=== PATIENT | female | born 1970 | race Caucasian/White ===

== ENCOUNTER 2019-01-04 20:14 | Inpatient (IN) ==
[2019-01-04 21:25] LABS: Eosinophils % 0.6 %; Immature Granulocytes % 1.4 % (0-4)
[2019-01-04 21:26] LABS: Basophils # 0.1 K/mcL (0.0-0.2); Basophils % 0.5 %; Eosinophils # 0.1 K/mcL (0.0-0.6); Hematocrit 18.3 % (35.3-44.9); Lymphocytes # 2.5 K/mcL (0.6-4.6); Lymphocytes % 21.5 %; Mean Corpuscular HGB Conc 31.7 g/dL (31.6-35.5); Mean Corpuscular Volume 78.9 fL (83.0-100.0); Mean Platelet Volume 9.7 fL (9.4-12.4); Monocytes # 0.8 K/mcL (0.0-1.3); Platelet Count 352 K/mcL (140-400); Red Blood Count 2.32 M/mcL (3.82-4.97); Red Cell Distribution Width 15.9 % (11.5-14.5); White Blood Count 11.6 K/mcL (4.3-11.1)
[2019-01-04 21:30] LABS: Hemoglobin 5.8 g/dL (11.5-15.4)
--- NOTE | 2019-01-04 21:38 | Emergency Department Note ---
Disposition Clinical Impression: Acute post-hemorrhagic anemia, Vaginal hemorrhage, Abnormal EKG Disposition: Admitted As Inpatient Time of Disposition: 22:13 General Adult HPI - General Chief complaint: ED Vaginal Bleeding Stated complaint: "I'm hemorrhaging I think" Time Seen by Provider: 01/04/19 20:37 Nursing Notes Reviewed: Yes Vital Signs Reviewed: Yes - History of Present Illness HPI Narrative: 48-year-old female who presents emergency Department with complaints of vaginal bleeding. She states she has been soaking through 1-2 pads per hour for the last 24 hours. She was recently on vacation and started as vaginal spotting 2 days ago but continued to worsen. She noted today that she started to have dizziness, shortness of breath with exertion, lightheadedness and feeling very weak so she came to the emergency department. She denies any vomiting of blood, chest pain, abdominal pain, hematemesis. Pain Scale: 0 - Related Data Home Medications Medication Instructions Recorded Confirmed Multivit with Calcium,Iron,Min 1 tab PO DAILY 01/04/19 01/04/19 [One Daily Women's] Previous Rx's Medication Instructions Recorded Medroxyprogesterone Acetate 10 mg PO TID 10 Days #30 tablet 01/04/19 [Provera] Allergies Allergy/AdvReac Type Severity Reaction Status Date / Time No Known Allergies Allergy Verified 01/04/19 22:16 Review of Systems: ROS per history of present illness, all other systems reviewed and negative or normal. All systems ED: reviewed and negative except as stated. Review of Systems: As Per HPI Past Medical History - Past Medical History Medical history: Reports: no medical history Surgical history: Reports: non-contributory - Social History Smoking Status: Never smoker Smokeless Tobacco Status: No Alcohol use: Reports: none Drug use: Reports: none Physical Exam General: Conversant. No apparent distress. Follow commands. Appears stated age. Very pale, dry mucous membranes, not diaphoretic Neck: No JVD. Trachea midline. Neck supple. Eyes: PERRL. No scleral icterus. HENT: Normocephalic and atraumatic. Dry mucus membranes. Cardiovascular: Regular rate and rhythm. Normal S1 and S2. No murmurs appreciated. Normal capillary refill. Extremities well perfused with 2+ distal pulses bilaterally. No edema. Pulmonary: Normal and equal breath sounds bilaterally, anteriorly and posterior ly. No wheezes, rales, or rhonchi. Not in respiratory distress. Speaks in full sentences. Abdomen: Soft, nondistended, and tontender. No bruits or masses. No guarding. : Large blood clots and bright red blood in the vaginal vault. After clearance of blood there continues to show active bleeding. There is no vaginal lacerations or visible lesions. Neuro: Alert and oriented x3. No slurred speech. No focal deficits noted. Skin: No rashes noted on visualized skin. Diffuse pallor. Musculoskeletal: No bony abnormalities visualized. Moves all extremities. Psych: Normal mood. Pleasant. Makes appropriate eye contact. Course - Reevaluation(s) Reevaluation #1: Trauma blood obtained and started. Pelvic exam shows continued vaginal bleeding with passage of clots. OB paged Time: 21:50 - Consultations Consultation #1: Discussed case with Dr. Hussein, [employer]. She recommends three units and will accept to OB service for further care. Patient's blood pressure stable at 117/80 with heart rate in 110s. She continues to mentate appropriately. Time: 22:15 Vital Signs Temperature 98.6 F 01/04/19 20:26 Pulse Rate 140 01/04/19 20:26 Respiratory Rate 18 01/04/19 20:26 Blood Pressure 144/80 01/04/19 20:26 O2 Sat by Pulse Oximetry 99 01/04/19 20:26 Temperature 98.6 F 01/04/19 22:16 Pulse Rate 114 01/04/19 22:45 Respiratory Rate 20 01/04/19 22:45 Blood Pressure 118/67 01/04/19 22:45 O2 Sat by Pulse Oximetry 100 01/04/19 22:45 Oxygen Delivery Oxygen Delivery Room Air Medical Decision Making - [facility] Narrative Medical decision making narrative: 48-year-old female who presents the emergency department with complaints of vaginal bleeding last 24 hours. She has been soaking through several pads per hour and is now feeling lightheaded and dizzy with significant fatigue. On arrival the patient is tachycardic, normotensive and has significant pallor. Patient's labs were drawn and shows a hemoglobin of 5.8 and that she does not have previous labs do believe this is likely secondary to acute vaginal hemorrhage. exam shows bright red blood in the vaginal vault with passage of blood clots and active bleeding on my examination. There is no evidence of vaginal mass or lacerations causing her bleeding. Otherwise the patient's EKG does show ST elevations in aVR with diffuse depressions, likely secondary to demand ischemia. The patient adamantly denies any chest pain or shortness of breath. 2 large-bore IVs were initiated and she was started on 1 L fluid bolus. Blood Bank was contacted and sent one unit trauma blood and additionally ordered 2 units of packed red blood cells which were typed and crossed. The patient's blood pressure has remained stable on the emergency department and her tachycardia has improved from the 140s down to 110s with IV fluids and blood products. She continues to mentate appropriately. I discussed the case with on- call [employer] B[employer]ORER, Dr. Hussein who accepts the patient for admission. Requests third unit of blood ordered. Patient agrees with and understands course of treatment plan including plan for admission. All questions answered. - Medical Records Medical records reviewed: Yes I reviewed the patient's medical records. - Lab Data Lab results reviewed: Yes I reviewed the patient's lab results. Result diagrams: 01/04/19 21:12 01/04/19 21:12 Lab Results 01/04/19 01/04/19 01/04/19 Range/Units 21:12 21:12 21:35 WBC 11.6 H (4.3-11.1) K/mcL RBC 2.32 L (3.82-4.97) M/mcL Hgb 5.8 L* (11.5-15.4) g/dL Hct 18.3 L (35.3-44.9) % MCV 78.9 L (83.0-100.0) fL MCH 25.0 L (28.0-33.3) pg MCHC 31.7 (31.6-35.5) g/dL RDW 15.9 H (11.5-14.5) % Plt Count 352 (140-400) K/mcL MPV 9.7 (9.4-12.4) fL Immature Gran % 1.4 (0-4) % Seg Neutrophils % 69.0 % Lymphocytes % 21.5 % Monocytes % 7.0 % Eosinophils % 0.6 % Basophils % 0.5 % Neutrophils # 8.0 (1.6-8.9) K/mcL Lymphocytes # 2.5 (0.6-4.6) K/mcL Monocytes # 0.8 (0.0-1.3) K/mcL Eosinophils # 0.1 (0.0-0.6) K/mcL Basophils # 0.1 (0.0-0.2) K/mcL Platelet Estimate Normal (Normal) Hypochromasia Present A (Not Present) Microcytosis Present A (Not Present) Sodium 132 L (136-145) mEq/L Potassium 3.1 L (3.5-5.1) mEq/L Chloride 100 (98-107) mEq/L Carbon Dioxide 24 (23-29) mEq/L BUN 7 (6-20) mg/dL Creatinine 0.50 L (0.60-1.20) mg/dL Est GFR ( Amer) > 60 (> 60) Est GFR (Non-Af Amer) > 60 (> 60) BUN/Creatinine Ratio 14 (6-26) Glucose 151 H (70-105) mg/dL Calculated Osmolality 275 L (280-300) Calcium 8.7 (8.6-10.3) mg/dL Troponin I 0.03 (< 0.04) ng/mL Ur Specimen Adequacy See below A Urine Color Red A (Yellow) Urine Clarity Turbid A (Clear) Urine pH 6.5 (5.0-8.0) pH Units Ur Specific [place] 1.018 (1.010-1.025) Urine Protein >=1000 H (Neg-Trace) mg/dL Urine Glucose (UA) 100 H (Normal) mg/dL Urine Ketones Negative (Negative) mg/dL Urine Blood Large H (Negative) Urine Nitrite Negative (Negative) Urine Bilirubin Negative (Negative) Urine Urobilinogen Normal (Normal) mg/dL Ur Leukocyte Esterase Moderate H (Negative) Ur Culture Indicated? YES A (NO) Blood Type Antibody Screen Crossmatch 01/04/19 Range/Units 21:38 WBC (4.3-11.1) K/mcL RBC (3.82-4.97) M/mcL Hgb (11.5-15.4) g/dL Hct (35.3-44.9) % MCV (83.0-100.0) fL MCH (28.0-33.3) pg MCHC (31.6-35.5) g/dL RDW (11.5-14.5) % Plt Count (140-400) K/mcL MPV (9.4-12.4) fL Immature Gran % (0-4) % Seg Neutrophils % % Lymphocytes % % Monocytes % % Eosinophils % % Basophils % % Neutrophils # (1.6-8.9) K/mcL Lymphocytes # (0.6-4.6) K/mcL Monocytes # (0.0-1.3) K/mcL Eosinophils # (0.0-0.6) K/mcL Basophils # (0.0-0.2) K/mcL Platelet Estimate (Normal) Hypochromasia (Not Present) Microcytosis (Not Present) Sodium (136-145) mEq/L Potassium (3.5-5.1) mEq/L Chloride (98-107) mEq/L Carbon Dioxide (23-29) mEq/L BUN (6-20) mg/dL Creatinine (0.60-1.20) mg/dL Est GFR ( Amer) (> 60) Est GFR (Non-Af Amer) (> 60) BUN/Creatinine Ratio (6-26) Glucose (70-105) mg/dL Calculated Osmolality (280-300) Calcium (8.6-10.3) mg/dL Troponin I (< 0.04) ng/mL Ur Specimen Adequacy Urine Color (Yellow) Urine Clarity (Clear) Urine pH (5.0-8.0) pH Units Ur Specific [place] (1.010-1.025) Urine Protein (Neg-Trace) mg/dL Urine Glucose (UA) (Normal) mg/dL Urine Ketones (Negative) mg/dL Urine Blood (Negative) Urine Nitrite (Negative) Urine Bilirubin (Negative) Urine Urobilinogen (Normal) mg/dL Ur Leukocyte Esterase (Negative) Ur Culture Indicated? (NO) Blood Type O POSITIVE Antibody Screen NEGATIVE Crossmatch See Detail - EKG Data EKG #1 EKG attestation: Yes I reviewed and interpreted this EKG. EKG results narrative: Sinus tachycardia rate of 144. Normal axis. There are ST elevations in aVR with ST depressions diffusely in aVF, V1, V3, V4, V5 and V6. Normal intervals.
[2019-01-04 21:41] LABS: BUN/Creatinine Ratio 14 (6-26); Blood Urea Nitrogen 7 mg/dL (6-20); Calcium 8.7 mg/dL (8.6-10.3); Carbon Dioxide 24 mEq/L (23-29); Chloride 100 mEq/L (98-107); Glucose 151 mg/dL (70-105); Osmolality,Calculated 275 (280-300); Potassium 3.1 mEq/L (3.5-5.1); Sodium 132 mEq/L (136-145); eGFR For African Americans > 60 (> 60); eGFR For Non-African Americans > 60 (> 60)
[2019-01-04] MEDS ORDERED: 0.9 % Sodium Chloride 1,000 ML IVC SCH (21:45)
[2019-01-04] MEDS ORDERED: 0.9 % Sodium Chloride 250 ML ONE (21:59)
[2019-01-04 22:01] LABS: Bilirubin,Urine Negative (Negative); Blood,Urine Large (Negative); Clarity,Urine Turbid (Clear); Color,Urine Red (Yellow); Glucose,Urine (UA) 100 mg/dL (Normal); Ketones,Urine Negative (Negative); Leukocyte Esterase,Urine Moderate (Negative); Nitrite,Urine Negative (Negative); PH,Urine 6.5 pH Units (5.0-8.0); Protein,Urine >=1000 mg/dL (Neg-Trace); Specific Gravity,Urine 1.018 (1.010-1.025); Urobilinogen,Urine Normal (Normal)
[2019-01-04 22:02] LABS: Hypochromasia Present (Not Present); Microcytosis Present (Not Present); Platelet Estimate Normal (Normal)
[2019-01-04 22:07] LABS: Troponin I 0.03 ng/mL (< 0.04)
--- NOTE | 2019-01-04 22:17 | OB/GYN History & Physical ---
Date of Encounter: 01/04/19 Time of Encounter: 22:14 Assessment and Plan (1) Acute post-hemorrhagic anemia Current visit: Yes Status: Acute 48yo female who presents to ED with AUB, found to be severely anemiic 1. ABL anemia (acute blood loss) - patient presented to ED with lightheadedness, dizziness, and tachycardia - normotensive on admission with HR 90-100s - severe anemia appreciated: 5.8, hypokalemic - 1U trauma blood with 2UpRBC ordered (total 3) - patient denies any regular medicinal intake: no anticoagulation, no exogenous hormones - reports si/sx of perimenopause: irregular menses, last 2 days with q1H pad exchange - TVUS and pending in the ED, will complete prior to admission to the floor - RX: 25mg IV conjugated estrogen q6H scheduled x3 doses, ordered PO medroxyprogesterone acetate to start at 1330 tomorrow (01/05) afternoon with plans to DC pateint to home with medroxyprogesterone acetate x (TID x10 days) until she is able to see per primary OBGYN - discussed with patient the risk(s) of IV estrogen as there are no contraindication(s) at this time: no GRIMES, HTN, migraine with aura, hx fo VTE - repeat labs to be ordered for 4hr following completion of last UpRBC transfused (will discuss this with oncoming team in AM) - Ordered for patient to be started on a regular diet, will continue 125mL/H of D5/0.5LR for volume resuscitation - OK to transition patient to PO progesterone, will continue daily tabs at home until seen by private OBGYN Dispo: Patient kept with ELECTRONIC EQUIPMENT REPAIRER (observation) overnight to complete 3UpRBC and to start IV estrogen for her persistent vaginal bleeding. TVUS ordered and pending. Will have repeat labs adminsitered 4hr after completed transfusion. Likely for DC to home tomorrow on 01/05 pending bleeding status. MD MANDO History of Present Illness Chief complaint: AUB HPI: Ms. Portillo is a 48 year old female who presents to the ED with significant vaginal bleeding. Patient appreciates perimenopausal symptoms including hot flushes, irregular menses, irritability. She denies regular monthly menses, however over the past 2 days she has been having severely heavy vaginal ble eding. She reports having gone through 1-2 pads per hour. She began to feel light headed and dizzy when she then decided to present to the ED. Her started Hgb was 5.2. She was immediately transfused 1U of trauma blood, and ordered another 2U pRBC. Per rapport, a SSE was performed at which point a large clot was removed and mild bleeding was still appreciated. The patient is of sound mind and mentation, and denies this happening before. She is not currently taking any medications, this includes but it not limited to anticoagulation medication(S), exogenous hormone therapy, barraza inhibitors. A pelvic (TVUS) was ordered prior to the patient being admitted to the ELECT[employer] EQUIPMENT REPAIRER service for overnight observation. Recommendation at this time is for patient to be started on IV estrogen, and transitioned to po progesterone until she is able to follow up with her regular OBGYN. At this point, are differential for her abnormal uterine bleeding is proliferative endometrium, leiomyosis, adenomyosis, endometrial polyp. Will order CBC for tomorrow AM 4 hrs following last bag of pRBC. Pending patien t status and active bleeding, OK to transition her to PO medication and DC to home. OK for patient to be on regular diet with IVF to continue volume resuscitation. Will continue to montior VS q4hrs with UOP. Past Med Surg Social Fam HX - Past Medical History Medical history: no medical history - Past Surgical History Surgical History: non-contributory - Social History Smoking Status: Never smoker Smokeless Tobacco Status: No Alcohol use: none Drug use: none Medications and Allergies Multivit with Calcium,Iron,Min [One Daily Women's] 1 tab PO DAILY 01/04/19 [History] Allergy/AdvReac Type Severity Reaction Status Date / Time No Known Allergies Allergy Verified 01/04/19 22:16 Exam - Vital Signs Vital signs: Initial Vital Signs Temp Pulse Resp BP Pulse Ox 98.6 F 140 18 144/80 99 01/04/19 20:26 01/04/19 20:26 01/04/19 20:26 01/04/19 20:26 01/04/19 20:26 - Constitutional Constitutional: well developed, mild distress - HEENT HEENT: Pallor - Neck Neck exam: full ROM - Lungs Respiratory exam: CTAB - Cardiovascular Cardiovascular exam: RRR - Vagina Vagina: Present: normal moisture (vaginal bleeding appreciated from the uterus, large clot removed during SSE performed in the ED.) - Uterus Uterus exam: Present: enlarged Results Result Diagrams: 01/04/19 21:12 01/04/19 21:12 Abnormal lab results WBC 11.6 K/mcL (4.3-11.1) H 01/04/19 21:12 RBC 2.32 M/mcL (3.82-4.97) L 01/04/19 21:12 Hgb 5.8 g/dL (11.5-15.4) L* 01/04/19 21:12 Hct 18.3 % (35.3-44.9) L 01/04/19 21:12 MCV 78.9 fL (83.0-100.0) L 01/04/19 21:12 MCH 25.0 pg (28.0-33.3) L 01/04/19 21:12 RDW 15.9 % (11.5-14.5) H 01/04/19 21:12 Present (Not Present) A 01/04/19 21:12 Present (Not Present) A 01/04/19 21:12 Sodium 132 mEq/L (136-145) L 01/04/19 21:12 Potassium 3.1 mEq/L (3.5-5.1) L 01/04/19 21:12 0.50 mg/dL (0.60-1.20) L 01/04/19 21:12 Glucose 151 mg/dL (70-105) H 01/04/19 21:12 275 (280-300) L 01/04/19 21:12 Ur Specimen Adequacy See below A 01/04/19 21:35 Red (Yellow) A 01/04/19 21:35 Turbid (Clear) A 01/04/19 21:35 >=1000 mg/dL (Neg-Trace) H 01/04/19 21:35 100 mg/dL (Normal) H 01/04/19 21:35 Large (Negative) H 01/04/19 21:35 Ur Leukocyte Esterase Moderate (Negative) H 01/04/19 21:35 Ur Culture Indicated? YES (NO) A 01/04/19 21:35 All other labs normal.
--- NOTE | 2019-01-04 23:05 | Emergency Department Note ---
Disposition Clinical Impression: Acute post-hemorrhagic anemia, Vaginal hemorrhage, Abnormal EKG Disposition: Admitted As Inpatient Condition: Serious Time of Disposition: 23:06 General Adult HPI - General Chief complaint: ED Vaginal Bleeding Stated complaint: "I'm hemorrhaging I think" Time Seen by Provider: 01/04/19 20:37 Nursing Notes Reviewed: Yes Vital Signs Reviewed: Yes - History of Present Illness Pain Scale: 0 - Related Data Home Medications Medication Instructions Recorded Confirmed Multivit with Calcium,Iron,Min 1 tab PO DAILY 01/04/19 01/04/19 [One Daily Women's] Previous Rx's Medication Instructions Recorded Medroxyprogesterone Acetate 10 mg PO TID 10 Days #30 tablet 01/04/19 [Provera] Allergies Allergy/AdvReac Type Severity Reaction Status Date / Time No Known Allergies Allergy Verified 01/04/19 22:16 Past Medical History - Past Medical History Medical history: Reports: no medical history Surgical history: Reports: non-contributory - Social History Smoking Status: Never smoker Smokeless Tobacco Status: No Alcohol use: Reports: none Drug use: Reports: none Physical Exam - General General appearance: alert, in distress Course Vital Signs Temperature 98.6 F 01/04/19 20:26 Pulse Rate 140 01/04/19 20:26 Respiratory Rate 18 01/04/19 20:26 Blood Pressure 144/80 01/04/19 20:26 O2 Sat by Pulse Oximetry 99 01/04/19 20:26 Temperature 98.6 F 01/04/19 22:16 Pulse Rate 114 01/04/19 22:45 Respiratory Rate 20 01/04/19 22:45 Blood Pressure 118/67 01/04/19 22:45 O2 Sat by Pulse Oximetry 100 01/04/19 22:45 Oxygen Delivery Oxygen Delivery Room Air Medical Decision Making - Lab Data Lab results reviewed: Yes I reviewed the patient's lab results. Result diagrams: 01/04/19 21:12 01/04/19 21:12 Lab Results 01/04/19 01/04/19 01/04/19 Range/Units 21:12 21:12 21:35 WBC 11.6 H (4.3-11.1) K/mcL RBC 2.32 L (3.82-4.97) M/mcL Hgb 5.8 L* (11.5-15.4) g/dL Hct 18.3 L (35.3-44.9) % MCV 78.9 L (83.0-100.0) fL MCH 25.0 L (28.0-33.3) pg MCHC 31.7 (31.6-35.5) g/dL RDW 15.9 H (11.5-14.5) % Plt Count 352 (140-400) K/mcL MPV 9.7 (9.4-12.4) fL Immature Gran % 1.4 (0-4) % Seg Neutrophils % 69.0 % Lymphocytes % 21.5 % Monocytes % 7.0 % Eosinophils % 0.6 % Basophils % 0.5 % Neutrophils # 8.0 (1.6-8.9) K/mcL Lymphocytes # 2.5 (0.6-4.6) K/mcL Monocytes # 0.8 (0.0-1.3) K/mcL Eosinophils # 0.1 (0.0-0.6) K/mcL Basophils # 0.1 (0.0-0.2) K/mcL Platelet Estimate Normal (Normal) Hypochromasia Present A (Not Present) Microcytosis Present A (Not Present) Sodium 132 L (136-145) mEq/L Potassium 3.1 L (3.5-5.1) mEq/L Chloride 100 (98-107) mEq/L Carbon Dioxide 24 (23-29) mEq/L BUN 7 (6-20) mg/dL Creatinine 0.50 L (0.60-1.20) mg/dL Est GFR ( Amer) > 60 (> 60) Est GFR (Non-Af Amer) > 60 (> 60) BUN/Creatinine Ratio 14 (6-26) Glucose 151 H (70-105) mg/dL Calculated Osmolality 275 L (280-300) Calcium 8.7 (8.6-10.3) mg/dL Troponin I 0.03 (< 0.04) ng/mL Ur Specimen Adequacy See below A Urine Color Red A (Yellow) Urine Clarity Turbid A (Clear) Urine pH 6.5 (5.0-8.0) pH Units Ur Specific [place] 1.018 (1.010-1.025) Urine Protein >=1000 H (Neg-Trace) mg/dL Urine Glucose (UA) 100 H (Normal) mg/dL Urine Ketones Negative (Negative) mg/dL Urine Blood Large H (Negative) Urine Nitrite Negative (Negative) Urine Bilirubin Negative (Negative) Urine Urobilinogen Normal (Normal) mg/dL Ur Leukocyte Esterase Moderate H (Negative) Ur Culture Indicated? YES A (NO) Blood Type Antibody Screen Crossmatch 01/04/19 Range/Units 21:38 WBC (4.3-11.1) K/mcL RBC (3.82-4.97) M/mcL Hgb (11.5-15.4) g/dL Hct (35.3-44.9) % MCV (83.0-100.0) fL MCH (28.0-33.3) pg MCHC (31.6-35.5) g/dL RDW (11.5-14.5) % Plt Count (140-400) K/mcL MPV (9.4-12.4) fL Immature Gran % (0-4) % Seg Neutrophils % % Lymphocytes % % Monocytes % % Eosinophils % % Basophils % % Neutrophils # (1.6-8.9) K/mcL Lymphocytes # (0.6-4.6) K/mcL Monocytes # (0.0-1.3) K/mcL Eosinophils # (0.0-0.6) K/mcL Basophils # (0.0-0.2) K/mcL Platelet Estimate (Normal) Hypochromasia (Not Present) Microcytosis (Not Present) Sodium (136-145) mEq/L Potassium (3.5-5.1) mEq/L Chloride (98-107) mEq/L Carbon Dioxide (23-29) mEq/L BUN (6-20) mg/dL Creatinine (0.60-1.20) mg/dL Est GFR ( Amer) (> 60) Est GFR (Non-Af Amer) (> 60) BUN/Creatinine Ratio (6-26) Glucose (70-105) mg/dL Calculated Osmolality (280-300) Calcium (8.6-10.3) mg/dL Troponin I (< 0.04) ng/mL Ur Specimen Adequacy Urine Color (Yellow) Urine Clarity (Clear) Urine pH (5.0-8.0) pH Units Ur Specific [place] (1.010-1.025) Urine Protein (Neg-Trace) mg/dL Urine Glucose (UA) (Normal) mg/dL Urine Ketones (Negative) mg/dL Urine Blood (Negative) Urine Nitrite (Negative) Urine Bilirubin (Negative) Urine Urobilinogen (Normal) mg/dL Ur Leukocyte Esterase (Negative) Ur Culture Indicated? (NO) Blood Type O POSITIVE Antibody Screen NEGATIVE Crossmatch See Detail - EKG Data EKG #1 EKG attestation: Yes I reviewed and interpreted this EKG. EKG results narrative: EKG shows a sinus tachycardia with ventricular rate of 144. There is ST elevation in aVR with diffuse ST depressions otherwise, likely all demand ischemia and rate related. Critical Care Time Critical Care Time: Yes Total Critical Care Time: 45 Attestation: Critical care performed: Time is exclusive of separately billable procedures. Time includes: direct patient care, patient reassessment, coordination of patient care, interpretation of data (laboratory data, radiology data, and respiratory data), review of patient's medical records, medical consultation and documentation of patient care. Procedures included in critical care time: Procedures excluded from critical care time: Attestation Statement - Attestation Attestation: I, Lino Augustin MD, personally evaluated this patient and discussed their management with the resident physician. I reviewed the resident's note and agree with the documented findings, medical decision making, and plan of care. I reviewed the residents documentation and agree with the residents assessment and plan of care. I have personally had face to face time with the patient. I personally supervised and was present for the orellana/critical portions of the fol lowing procedures completed by the resident: EKG interpretation. 48-year-old female presents to the emergency department with a complaint of heavy vaginal bleeding which started yesterday. Patient is premenopausal. She states her periods have been irregular recently and her last period was about re-months ago. Day before yesterday she started having some spotting and then yesterday started bleeding heavily. He heavy bleeding persisted today with clots. Patient states that she has been using 1-2 pads per hour. Today she complains of generalized weakness and fatigue and not feeling well. She does feel a little dizzy when she stands up or moves around. There has been no syn cope. She denies any abdominal pain. No fever. No chest pain or shortness of breath. On examination patient is a well-developed well-nourished female in mild distress. She is awake alert and oriented. She is extremely pale. There is no cyanosis or diaphoresis. Breath sounds are clear and equal bilaterally. Heart regular with a moderate tachycardia in the 140s. Abdomen is soft and nontender with normal bowel sounds. Pelvic exam performed by Dr. Ulloa did reveal active bleeding of dark red blood. Labs reviewed. EKG shows a sinus tachycardia with ventricular rate of 144. There is ST elevation in aVR with diffuse ST depressions otherwise, likely all demand ischemia and rate related. 2 IVs established. Patient received normal saline. She received one unit of O- unmatched blood. Type and cross matched PRBCs 2 units. She was never hypotensive. Her heart rate improved from the 140s to the 1 teens with IV fluids. Blood pressure has remained stable. The acid etch operator virtualization consultant, Dr. Livingston, was consulted and accepted admission of the patient.
[2019-01-04] MEDS ORDERED: D5% in Lactated Ringers 1,000 ML IVC SCH (23:12)
[2019-01-05] MEDS ORDERED: 0.9 % Sodium Chloride 1,000 ML ONE ×2 (00:52→20:07)
[2019-01-05] MEDS: Ondansetron 4 MG/2 ML VIAL IVP ONE ×2 (03:49→15:37)
[2019-01-05 13:50] LABS: Basophils % 0.3 %; Eosinophils # 0.1 K/mcL (0.0-0.6); Eosinophils % 0.4 %; Hematocrit 18.1 % (35.3-44.9); Immature Granulocytes % 2.4 % (0-4); Lymphocytes # 2.3 K/mcL (0.6-4.6); Mean Corpuscular HGB Conc 33.1 g/dL (31.6-35.5); Mean Corpuscular Hemoglobin 27.6 pg (28.0-33.3); Mean Corpuscular Volume 83.4 fL (83.0-100.0); Mean Platelet Volume 9.3 fL (9.4-12.4); Monocytes # 0.7 K/mcL (0.0-1.3); Monocytes % 4.8 %; Neutrophils # 10.1 K/mcL (1.6-8.9); Platelet Count 237 K/mcL (140-400); Red Blood Count 2.17 M/mcL (3.82-4.97); Red Cell Distribution Width 16.3 % (11.5-14.5); Segmented Neutrophils % 75.1 %; White Blood Count 13.5 K/mcL (4.3-11.1)
--- NOTE | 2019-01-05 14:14 | Event Note ---
Date of Encounter: 01/05/19 Time of Encounter: 14:12 Proceed the latest hemoglobin on this patient. I was called by nursing. Patient's hemoglobin went from 5.8-6.0 after 3 units of blood. I personally went to see patient. She stated that she was still passing large clots up until about an hour ago. She has received her IV estrogen. She also received a dose of 40 mg of Megace. She feels that after the Megace the bleeding has slowed down considerably. She states that she is again tachycardic and she does feel lightheaded. We discussed received another 2 units of blood. She does agree with this we will get her scheduled for this. I had a discussion with patient and her about giving her another hour or so to make sure that the bleeding slows down and subsides. If it does not we will take her back for D&C and clean out the lining. She does agree to this.
[2019-01-05] MEDS ORDERED: 0.9 % Sodium Chloride 500 ML ONE ×2 (14:33→20:19)
[2019-01-05 14:59] LABS: Basophils % 0.2 %; Eosinophils # 0.1 K/mcL (0.0-0.6); Eosinophils % 0.5 %; Hematocrit 18.3 % (35.3-44.9); Immature Granulocytes % 2.6 % (0-4); Lymphocytes # 2.4 K/mcL (0.6-4.6); Lymphocytes % 18.9 %; Mean Corpuscular HGB Conc 32.8 g/dL (31.6-35.5); Mean Corpuscular Hemoglobin 27.8 pg (28.0-33.3); Mean Corpuscular Volume 84.7 fL (83.0-100.0); Mean Platelet Volume 9.6 fL (9.4-12.4); Monocytes # 0.8 K/mcL (0.0-1.3); Monocytes % 5.9 %; Neutrophils # 9.3 K/mcL (1.6-8.9); Platelet Count 245 K/mcL (140-400); Red Blood Count 2.16 M/mcL (3.82-4.97); Red Cell Distribution Width 16.5 % (11.5-14.5); Segmented Neutrophils % 71.9 %; White Blood Count 12.9 K/mcL (4.3-11.1)
[2019-01-05] MEDS ORDERED: Ondansetron 4 MG/2 ML VIAL ONE ×2 (15:34→19:50)
[2019-01-05] MEDS ORDERED: Ondansetron 4 MG/2 ML VIAL IVP PRN (15:37)
--- NOTE | 2019-01-05 17:52 | Electrocardiograph Report ---
[place] [id number] Test Date: 2019-01-05 Pat Name: Betsy Portillo Department: 101 Room: 1NE30 Gender: F Research Food Technologist: JUSTIN : 1970 Requested By: Fartun Mccormick Order Number: [id number] Reading MD: Sonu Fink Measurements Intervals [place] Rate: 114 P: 37 IA: 135 QRS: 42 QRSD: 94 T: 8 QT: 332 QTc: 400 Interpretive Statements SINUS TACHYCARDIA ST DEVIATION AND MODERATE T-WAVE ABNORMALITY, CONSIDER ANTEROLATERAL ISCHEMIA Electronically Signed On 01-05-2019 17:51:08 EDT by Sonu Fink
[2019-01-05] MEDS ORDERED: CeFAZolin Premix DUPLEX 2,000 MG/50 ML BAG IVPB ONE (18:32)
--- NOTE | 2019-01-05 19:36 | Event Note ---
Date of Encounter: 01/05/19 Time of Encounter: 19:34 Called by nursing. Patient continues to bleed. We have given patient time for her medications to work. Nothing seems to be helping. She continues to lose blood as fast as we are given. I want to discuss a D&C with patient and her family. Everyone was in the room upon this discussion. We discussed the need for this procedure. Her is very adamant he wishes this performed. I patient does agree. We discussed the risks, complications. I discussed the possibility of a hysterectomy if I could not get her bleeding stopped. They all agree to this. He understands we will do everything that we can to prevent that from happening. But ultimately the goal is to stop her bleeding and the need for blood. Everyone agrees. We will get her taken back for a D&C
--- NOTE | 2019-01-05 19:43 | Anesthesia Evaluation PreOp ---
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 Other Medical History: Denies Any Significant HX, Other (Post bleeding and anemia) Anesthesia History: No Prior Anesthetic Complications, Past Anesthesia (BMT, tonsillectomy, appendectomy) : Yes Alcohol Use: none Drug use: none Medications and Allergies Medroxyprogesterone Acetate [Provera] 10 mg PO TID 10 Days #30 tablet 01/04/19 [Rx] Multivit with Calcium,Iron,Min [One Daily Women's] 1 tab PO DAILY 01/04/19 [History] Allergy/AdvReac Type Severity Reaction Status Date / Time No Known Allergies Allergy Verified 01/04/19 22:16 - Meds/Allergy Pre-op Review Medications Reviewed: Yes Allergies Reviewed: Yes Beta Blockers on Current Med List: No Anesthesia Results - Labs 01/05/19 14:37 01/04/19 21:12 Anesthesia Exam Vital Signs Temperature 98.6 F 01/04/19 20:26 Pulse Rate 140 01/04/19 20:26 Respiratory Rate 18 01/04/19 20:26 Blood Pressure 144/80 01/04/19 20:26 O2 Sat by Pulse Oximetry 99 01/04/19 20:26 Temperature 98.9 F 01/05/19 17:44 Pulse Rate 108 01/05/19 17:44 Respiratory Rate 16 01/05/19 17:44 Blood Pressure 109/70 01/05/19 17:44 O2 Sat by Pulse Oximetry 99 01/05/19 17:44 Oxygen Delivery Oxygen Delivery Room Air Height: 5'7" Weight: 98.5kg NPO (# of Hours): 4.5 (emergent) Pain Scale: 0 Pain Scale Used: Numeric (1 - 10) - HEENT Pupil (Motor): Pupils equal Mallampati: II Teeth: Normal Oral Opening: Greater than 3 - [employer]CHANGE REPAIRER LOC: Oriented [employer] EXCHANGE REPAIRER Motor: Normal RUE, Normal LUE, Normal RLE, Normal LLE, Normal Face [employer] EXCHANGE REPAIRER Sensory: Normal: RUE, LUE, RLE, LLE, Face - Cardiac Rhythm: Regular Murmur: None JVD: No Carotid Bruit: No - Pulmonary Breath Sounds: bilateral Clear Respiratory Effort: Symmetrical Anesthesia Assess/Plan ASA Score: 3, E Level of consciousness: Cooperative, Oriented, Tranquil Anesthetic Plan: General Autologous Blood: Yes Monitoring Plan: Standard Monitors Recovery Plan: PACU
[2019-01-05] MEDS ORDERED: *HR* Midazolam HCl 2 MG/2 ML VIAL ONE (19:50)
[2019-01-05] MEDS ORDERED: *HR* Succinylcholine 200 MG/10 ML VIAL IVP ONE (19:50)
[2019-01-05] MEDS ORDERED: *HR* FentaNYL (PF) 100 MCG/2 ML VIAL ONE ×2 (19:50→20:43)
[2019-01-05] MEDS ORDERED: *HR* Propofol 200 MG/20 ML VIAL IVP ONE (19:50)
[2019-01-05] MEDS ORDERED: Dexamethasone 4 MG/ML VIAL ONE (19:50)
[2019-01-05] MEDS ORDERED: *HR* Etomidate 40 MG/20 ML VIAL IVP ONE (19:54)
[2019-01-05] MEDS ORDERED: Tranexamic Acid 1,000 MG/10 ML VIAL ONE (20:18)
[2019-01-05] MEDS ORDERED: 0.9 % Sodium Chloride 3,000 ML ONE (20:39)
[2019-01-05] MEDS ORDERED: *HR* Rocuronium Bromide 50 MG/5 ML VIAL ONE (20:43)
[2019-01-05] MEDS ORDERED: Calcium Gluconate 1,000 MG/10 ML VIAL IVPB ONE (21:03)
[2019-01-05 21:17] LABS: Basophils # 0.1 K/mcL (0.0-0.2); Basophils % 0.5 %; Eosinophils # 0.1 K/mcL (0.0-0.6); Eosinophils % 0.5 %; Hematocrit 28.4 % (35.3-44.9); Immature Granulocytes % 2.7 % (0-4); Lymphocytes # 2.4 K/mcL (0.6-4.6); Lymphocytes % 16.3 %; Mean Corpuscular HGB Conc 33.5 g/dL (31.6-35.5); Mean Corpuscular Hemoglobin 29.2 pg (28.0-33.3); Mean Corpuscular Volume 87.4 fL (83.0-100.0); Mean Platelet Volume 9.6 fL (9.4-12.4); Monocytes # 1.1 K/mcL (0.0-1.3); Monocytes % 7.4 %; Neutrophils # 10.7 K/mcL (1.6-8.9); Nucleated Red Blood Cells 0.1 /100 WBC (0); Platelet Count 170 K/mcL (140-400); Red Blood Count 3.25 M/mcL (3.82-4.97); Red Cell Distribution Width 15.2 % (11.5-14.5); Segmented Neutrophils % 72.6 %; White Blood Count 14.8 K/mcL (4.3-11.1)
[2019-01-05 21:18] LABS: Hemoglobin 9.5 g/dL (11.5-15.4)
[2019-01-05 21:34] LABS: INR 1.4; Prothrombin Time 15.3 Seconds (9.4-12.1)
[2019-01-05 21:36] LABS: Activated Partial Thrombo Time 26.3 Seconds (26.0-36.0)
[2019-01-05] MEDS ORDERED: Ferric Subsulfate 8 ML TOPICAL TP STA (21:51)
[2019-01-05] MEDS ORDERED: Neostigmine Methylsulfate 3 MG/3 ML SYRINGE ONE (22:00)
--- NOTE | 2019-01-05 22:20 | OB/GYN Procedure Note ---
OB-[facility]: Procedure - Diagnosis Date of procedure: 01/05/19 Pre-op diagnosis: Severe menorrhagia with resultant anemia requiring multiple transfusions Post-op diagnosis: same - Procedure Procedure: Dilation and curettage Surgeon: Jimenez Newberry Was there an oral surgery assistant present: No Anesthesia provider: Alysia Morgan Anesthesia Type: General Estimated blood loss (cc): 300 Fluids: blood, other (Patient received 5 units of blood and 2 units of plasma in the OR) Specimens collected: Endometrial curettings Disposition: floor Narrative: Patient continued to have blood loss. No increase in hemoglobin with continued units of blood. Tried to give time for Megace to help. Nothing seems to work. Because of this I discussed the procedure with patient and her family they wish to proceed with a D&C. Patient was then taken back to the operating room with IV in place. She was given general anesthesia. She was then prepped and draped in usual sterile fashion. Patient's legs were placed up in yellowfin stirrups. Examiner's is poor. Uterus is very large approximately 10 cm in size, boggy in nature. Large number of clots and bleeding continued coming from the cervical os. At this point the cervical os dilated an annual curetting was performed. Large amount of tissue was removed. A number of passes were made until I felt all the tissue was removed. Specimen was sent to pathology. Patient continued to bleed. At this point anesthesia continued to give blood and plasma. She received a total of 5 units of packed red blood cells and 2 units of plasma in the OR. A CBC was ordered which her hemoglobin came back at 9.5 during the case with all the blood administered. Patient did continue to bleed. At this time a 60 mL Eddy catheter was placed into the uterine cavity. 2 single-tooth tenaculums were placed on the cervical edge to close the cervix so the Eddy would stay in place. We left the Eddy in place for approximately 15 minutes while the blood products were given. We continued to wait. The Eddy would not stay in place without the tenaculums holding the cervix closed. After about 1 hour I slowly release the fluid from the Eddy. It was removed. 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 The single-tooth tenaculums were removed. Quite a bit of bleeding was noted from these sites. Ring forceps were placed on these. There was still spot on the bottom of the cervix to continue to bleed heavily. 3-0 Vicryl suture in this [id number] was placed to stop this. At this point we discussed Delfina with the pharmacist who felt that this could be use intrauteri ne. Because of this we did order this and place this intrauterine and some on the outside of the cervix to stop the bleeding. The bleeding did subside. We continued to monitor this patient for approximately another 20 minutes. Seeing no bleeding the procedure was terminated. Patient was taken back to the recovery room. Discussed the case with patient's family. He understood everything completely. We discussed the possibility of future surgeries and that she could begin bleeding again. The next step would be hysterectomy. They understood this completely.
[2019-01-05] MEDS ORDERED: Naloxone 0.4 MG/ML INJ IVP PRN (22:28)
[2019-01-05] MEDS ORDERED: Ringers Solution, Lactated 1,000 ML IVC SCH (22:30)
[2019-01-05] MEDS ORDERED: Acetaminophen IV 1,000 MG/100 ML INFUS..BTL IVPB ONE (23:15)
[2019-01-06] MEDS ORDERED: 0.9 % Sodium Chloride 1,000 ML ONE (00:09)
[2019-01-06] MEDS ORDERED: *HR* OxyCODONE/APAP 5/325 TABLET PO PRN (00:43)
[2019-01-06 00:53] LABS: Basophils # 0.1 K/mcL (0.0-0.2); Basophils % 0.6 %; Eosinophils % 0.2 %; Hematocrit 31.8 % (35.3-44.9); Hemoglobin 10.5 g/dL (11.5-15.4); Immature Granulocytes % 4.9 % (0-4); Lymphocytes # 1.6 K/mcL (0.6-4.6); Lymphocytes % 8.3 %; Mean Corpuscular Hemoglobin 28.6 pg (28.0-33.3); Mean Corpuscular Volume 86.6 fL (83.0-100.0); Mean Platelet Volume 9.6 fL (9.4-12.4); Monocytes # 0.6 K/mcL (0.0-1.3); Monocytes % 3.4 %; Neutrophils # 15.6 K/mcL (1.6-8.9); Nucleated Red Blood Cells 0.2 /100 WBC (0); Platelet Count 183 K/mcL (140-400); Red Blood Count 3.67 M/mcL (3.82-4.97); Red Cell Distribution Width 14.8 % (11.5-14.5); Segmented Neutrophils % 82.6 %; White Blood Count 18.9 K/mcL (4.3-11.1)
[2019-01-06 01:00] LABS: INR 1.2; Prothrombin Time 13.2 Seconds (9.4-12.1)
--- NOTE | 2019-01-06 02:37 | Anesthesia Evaluation Post Op ---
Date of Encounter: 01/06/19 Time of Encounter: 11:50 - Vital Signs Vital Signs: Vital Signs Temperature 98.6 F 01/04/19 20:26 Pulse Rate 140 01/04/19 20:26 Respiratory Rate 18 01/04/19 20:26 Blood Pressure 144/80 01/04/19 20:26 O2 Sat by Pulse Oximetry 99 01/04/19 20:26 Temperature 98.8 F 01/06/19 00:35 Pulse Rate 95 01/06/19 00:35 Respiratory Rate 22 01/06/19 00:35 Blood Pressure 125/76 01/06/19 00:35 O2 Sat by Pulse Oximetry 95 01/06/19 00:35 Oxygen Delivery Oxygen Delivery Room Air - Lungs Lungs: Clear Ascult./Percussion - Airway Airway: Non-obstructed - Cardiovascular Regular Rate - Mental Status Mental Status: Alert & Oriented, Answers Appropriately - Pain Pain Scale: 4 Pain Scale used: Numeric (1 - 10) - Nausea Vomiting Nausea Vomiting: Not Present - Hydration Hydration: NPO, Eddy catheter - Discharge PostOp Status: Transfer Patient to floor
[2019-01-06 05:51] LABS: Basophils % 0.2 %; Eosinophils % 0.1 %; Hematocrit 28.8 % (35.3-44.9); Immature Granulocytes % 3.2 % (0-4); Lymphocytes # 1.9 K/mcL (0.6-4.6); Lymphocytes % 10.6 %; Mean Corpuscular HGB Conc 34.7 g/dL (31.6-35.5); Mean Corpuscular Hemoglobin 29.4 pg (28.0-33.3); Mean Corpuscular Volume 84.7 fL (83.0-100.0); Mean Platelet Volume 9.2 fL (9.4-12.4); Monocytes % 5.8 %; Neutrophils # 14.2 K/mcL (1.6-8.9); Nucleated Red Blood Cells 0.1 /100 WBC (0); Platelet Count 180 K/mcL (140-400); Red Cell Distribution Width 15.1 % (11.5-14.5); Segmented Neutrophils % 80.1 %; White Blood Count 17.8 K/mcL (4.3-11.1)
[2019-01-06 08:19] VITALS: BP 99/59
--- NOTE | 2019-01-06 09:21 | Discharge Summary ---
Date of Encounter: 01/07/19 Time of Encounter: 09:23 - Discharge Diagnosis (1) S/P D&C (status post dilation and curettage) Priority: Primary Status: Acute Comments: POD1 s/p D&C requiring intra uterine compression with palm with Dr South for vaginal bleeding . Patient reports recovering well with mild tachycardia overnight up to 114, 92% on RA and overnight elevated temperature peak at 99.9 - biopsy sent - reports pending - received IV estrogen x3 doses - continue megace scheduled bid - received 2 g Ancef in OR -repeat dose today - start flagyl once - advance diet as tolerated Follow up with Dr Mcdaniel with in one week (2) Acute post-hemorrhagic anemia Priority: Secondary Status: Acute Comments: HgB of 10 stable from 10.5 after D&C admitted with Hgb of 5.8. Etiology of vaginal bleeding Plt 180 stable from 170 at lowest. Received total of 9 units PRBC with 4 holding and 2 units plasma (3) Vaginal hemorrhage Priority: Secondary Status: Acute Comments: Etiology of vaginal bleeding undetermined - biopsy sent - see above (4) Abnormal EKG Priority: Secondary Status: Acute Comments: On admission abnormal EKG with negative troponins and diffuse ST elevates improved with transfusion with ST deviation and T wave morphology as expected on repeat EKG yesterday. - appreciate cardiology reading advise possible anterolateral ischemia but likely demand ischemia given clinical picture - repeat EKG today before discharge showed t wave abnormalities with lowe underlying voltage but no ST changes and continued to deny chest pain - patient agrees follow up with new PCP (5) Right ovarian enlargement Priority: Secondary Status: Acute Comments: Uterine and right ovarain enlargment - follow up outpatient with Dr Mcdaniel - tumor markers ordered (6) Leukocytosis Priority: Secondary Status: Acute Comments: Elevated temperature of 99.0 and WBC peak at 18 but low suspicion for endometriosis based on Dr Mcdaniel pelvic exam as noted above thus no PO abx on discharge - start flagyl and ancef today Qualifiers: Leukocytosis type: unspecified Qualified Code(s): D72.829 - Elevated white blood cell count, unspecified (7) Hypokalemia Priority: Secondary Status: Acute Comments: K 3.1 mild on admit likely due to recent poor oral intake - advance diet (8) Uterine enlargement Priority: Secondary Status: Acute Comments: Follow-up pelvic ultrasound to assess stability in the office - Discharge Medications Prescriptions: New Docusate Sodium [Colace] 100 mg PO BID #60 capsule Ferrous Sulfate 325 mg PO DAILY #30 tablet Megestrol Acetate [Megace] 40 mg PO BID #14 tablet Continued Multivit with Calcium,Iron,Min [One Daily Women's] 1 tab PO DAILY Home Medications: Multivit with Calcium,Iron,Min [One Daily Women's] 1 tab PO DAILY 01/04/19 [History] Docusate Sodium [Colace] 100 mg PO BID #60 capsule 01/06/19 [Rx] Ferrous Sulfate 325 mg PO DAILY #30 tablet 01/06/19 [Rx] Megestrol Acetate [Megace] 40 mg PO BID #14 tablet 01/06/19 [Rx] Allergies/Adverse Reactions: Allergy/AdvReac Type Severity Reaction Status Date / Time No Known Allergies Allergy Verified 01/04/19 22:16 Data Procedures and tests throughout hospitalization: Laboratory Tests 01/04/19 01/04/19 01/04/19 21:12 21:12 21:35 WBC 11.6 H RBC 2.32 L Hgb 5.8 L* Hct 18.3 L MCV 78.9 L MCH 25.0 L MCHC 31.7 RDW 15.9 H Plt Count 352 MPV 9.7 Immature Gran % 1.4 Seg Neutrophils % 69.0 Lymphocytes % 21.5 Monocytes % 7.0 Eosinophils % 0.6 Basophils % 0.5 Neutrophils # 8.0 Lymphocytes # 2.5 Monocytes # 0.8 Eosinophils # 0.1 Basophils # 0.1 Nucleated RBCs/100 WBC Platelet Estimate Normal Hypochromasia Present A Microcytosis Present A PT INR APTT Fibrinogen Sodium 132 L Potassium 3.1 L Chloride 100 Carbon Dioxide 24 BUN 7 Creatinine 0.50 L Est GFR ( Amer) > 60 Est GFR (Non-Af Amer) > 60 BUN/Creatinine Ratio 14 Glucose 151 H Calculated Osmolality 275 L Calcium 8.7 Troponin I 0.03 Ur Specimen Adequacy See below A Urine Color Red A Urine Clarity Turbid A Urine pH 6.5 Ur Specific [place] 1.018 Urine Protein >=1000 H Urine Glucose (UA) 100 H Urine Ketones Negative Urine Blood Large H Urine Nitrite Negative Urine Bilirubin Negative Urine Urobilinogen Normal Ur Leukocyte Esterase Moderate H Ur Culture Indicated? YES A Blood Type Antibody Screen Crossmatch 0601/05/19 01/05/19 21:38 13:39 14:37 WBC 13.5 H 12.9 H RBC 2.17 L 2.16 L Hgb 6.0 L* 6.0 L* Hct 18.1 L 18.3 L MCV 83.4 84.7 MCH 27.6 L 27.8 L MCHC 33.1 32.8 RDW 16.3 H 16.5 H Plt Count 237 245 MPV 9.3 L 9.6 Immature Gran % 2.4 2.6 Seg Neutrophils % 75.1 71.9 Lymphocytes % 17.0 18.9 Monocytes % 4.8 5.9 Eosinophils % 0.4 0.5 Basophils % 0.3 0.2 Neutrophils # 10.1 H 9.3 H Lymphocytes # 2.3 2.4 Monocytes # 0.7 0.8 Eosinophils # 0.1 0.1 Basophils # 0.0 0.0 Nucleated RBCs/100 WBC Platelet Estimate Hypochromasia Microcytosis PT INR APTT Fibrinogen Sodium Potassium Chloride Carbon Dioxide BUN Creatinine Est GFR ( Amer) Est GFR (Non-Af Amer) BUN/Creatinine Ratio Glucose Calculated Osmolality Calcium Troponin I Ur Specimen Adequacy Urine Color Urine Clarity Urine pH Ur Specific [place] Urine Protein Urine Glucose (UA) Urine Ketones Urine Blood Urine Nitrite Urine Bilirubin Urine Urobilinogen Ur Leukocyte Esterase Ur Culture Indicated? Blood Type O POSITIVE Antibody Screen NEGATIVE Crossmatch See Detail 01/05/19 01/05/19 01/06/19 21:00 21:00 00:04 WBC 14.8 H 18.9 H RBC 3.25 L 3.67 L Hgb 9.5 L D 10.5 L Hct 28.4 L 31.8 L MCV 87.4 86.6 MCH 29.2 28.6 MCHC 33.5 33.0 RDW 15.2 H 14.8 H Plt Count 170 183 MPV 9.6 9.6 Immature Gran % 2.7 4.9 H Seg Neutrophils % 72.6 82.6 Lymphocytes % 16.3 8.3 Monocytes % 7.4 3.4 Eosinophils % 0.5 0.2 Basophils % 0.5 0.6 Neutrophils # 10.7 H 15.6 H Lymphocytes # 2.4 1.6 Monocytes # 1.1 0.6 Eosinophils # 0.1 0.0 Basophils # 0.1 0.1 Nucleated RBCs/100 WBC 0.1 H 0.2 H Platelet Estimate Hypochromasia Microcytosis PT 15.3 H INR 1.4 APTT 26.3 Fibrinogen 143 L Sodium Potassium Chloride Carbon Dioxide BUN Creatinine Est GFR ( Amer) Est GFR (Non-Af Amer) BUN/Creatinine Ratio Glucose Calculated Osmolality Calcium Troponin I Ur Specimen Adequacy Urine Color Urine Clarity Urine pH Ur Specific [place] Urine Protein Urine Glucose (UA) Urine Ketones Urine Blood Urine Nitrite Urine Bilirubin Urine Urobilinogen Ur Leukocyte Esterase Ur Culture Indicated? Blood Type Antibody Screen Crossmatch 01/06/19 01/06/19 01/06/19 00:04 00:04 05:40 WBC 17.8 H RBC 3.40 L Hgb 10.0 L Hct 28.8 L MCV 84.7 MCH 29.4 MCHC 34.7 RDW 15.1 H Plt Count 180 MPV 9.2 L Immature Gran % 3.2 Seg Neutrophils % 80.1 Lymphocytes % 10.6 Monocytes % 5.8 Eosinophils % 0.1 Basophils % 0.2 Neutrophils # 14.2 H Lymphocytes # 1.9 Monocytes # 1.0 Eosinophils # 0.0 Basophils # 0.0 Nucleated RBCs/100 WBC 0.1 H Platelet Estimate Hypochromasia Microcytosis PT 13.2 H INR 1.2 APTT 26.4 Fibrinogen 190 Sodium Potassium Chloride Carbon Dioxide BUN Creatinine Est GFR ( Amer) Est GFR (Non-Af Amer) BUN/Creatinine Ratio Glucose Calculated Osmolality Calcium Troponin I Ur Specimen Adequacy Urine Color Urine Clarity Urine pH Ur Specific [place] Urine Protein Urine Glucose (UA) Urine Ketones Urine Blood Urine Nitrite Urine Bilirubin Urine Urobilinogen Ur Leukocyte Esterase Ur Culture Indicated? Blood Type Antibody Screen Crossmatch Labs on day of discharge: Labs from last 24 hours 01/06/19 01/06/19 01/06/19 05:40 00:04 00:04 WBC 17.8 H RBC 3.40 L Hgb 10.0 L Hct 28.8 L MCV 84.7 MCH 29.4 MCHC 34.7 RDW 15.1 H Plt Count 180 MPV 9.2 L Immature Gran % 3.2 Seg Neutrophils % 80.1 Lymphocytes % 10.6 Monocytes % 5.8 Eosinophils % 0.1 Basophils % 0.2 Neutrophils # 14.2 H Lymphocytes # 1.9 Monocytes # 1.0 Eosinophils # 0.0 Basophils # 0.0 Nucleated RBCs/100 WBC 0.1 H PT 13.2 H INR 1.2 APTT 26.4 Fibrinogen 190 Blood Type Antibody Screen Crossmatch 01/06/19 01/05/19 01/05/19 00:04 21:00 21:00 WBC 18.9 H 14.8 H RBC 3.67 L 3.25 L Hgb 10.5 L 9.5 L D Hct 31.8 L 28.4 L MCV 86.6 87.4 MCH 28.6 29.2 MCHC 33.0 33.5 RDW 14.8 H 15.2 H Plt Count 183 170 MPV 9.6 9.6 Immature Gran % 4.9 H 2.7 Seg Neutrophils % 82.6 72.6 Lymphocytes % 8.3 16.3 Monocytes % 3.4 7.4 Eosinophils % 0.2 0.5 Basophils % 0.6 0.5 Neutrophils # 15.6 H 10.7 H Lymphocytes # 1.6 2.4 Monocytes # 0.6 1.1 Eosinophils # 0.0 0.1 Basophils # 0.1 0.1 Nucleated RBCs/100 WBC 0.2 H 0.1 H PT 15.3 H INR 1.4 APTT 26.3 Fibrinogen 143 L Blood Type Antibody Screen Crossmatch 01/05/19 01/05/19 01/04/19 14:37 13:39 21:38 WBC 12.9 H 13.5 H RBC 2.16 L 2.17 L Hgb 6.0 L* 6.0 L* Hct 18.3 L 18.1 L MCV 84.7 83.4 MCH 27.8 L 27.6 L MCHC 32.8 33.1 RDW 16.5 H 16.3 H Plt Count 245 237 MPV 9.6 9.3 L Immature Gran % 2.6 2.4 Seg Neutrophils % 71.9 75.1 Lymphocytes % 18.9 17.0 Monocytes % 5.9 4.8 Eosinophils % 0.5 0.4 Basophils % 0.2 0.3 Neutrophils # 9.3 H 10.1 H Lymphocytes # 2.4 2.3 Monocytes # 0.8 0.7 Eosinophils # 0.1 0.1 Basophils # 0.0 0.0 Nucleated RBCs/100 WBC PT INR APTT Fibrinogen Blood Type O POSITIVE Antibody Screen NEGATIVE Crossmatch See Detail - Impressions ITS Impressions Pelvis Ultrasound 01/04/19 22:17 IMPRESSION: Thickened endometrial stripe favored to reflect hematometra in the setting of perimenopausal bleeding. Other etiologies for thickening such as hyperplasia or carcinoma less favored. Consider follow-up pelvic ultrasound in 6-8 weeks versus sonohysterography, biopsy or hysteroscopy. Left ovarian follicular cysts, largest measuring up to 6.1 cm in maximum dimension. Recommend follow-up pelvic US annually. Reference: Radiology 2009;256(3):003-54. D/ / 01/05/2019 07:05:29 Ian Linton / charo Interpreting Provider: Ian Linton Date of admission: 01/05/19 15:02 Primary care physician: PCP NONE Discharging clinician: Fartun Mccormick Anticipated date of discharge: 01/06/19 - Patient Status Disposition: Home, Self-Care Condition: Fair Functional capacity at discharge: independent ambulation Overall status at discharge: patient is progressing back to baseline - Discharge Instructions Follow Up With: NONE,PCP [Primary Care Provider] - Michelle Mcdaniel MD [Partnered Physician] - Additional Instructions: There are many types of gynecologic surgery. Below, you will find groups of instructions related to caring for yourself after your procedure. there may be instructions that do not apply to you depending on the procedure that you had. Before you go home, your nurse will explain these instructions and let you know any special instructions that you may have. MEDICATIONS: -Continue taking your home medications as prescribed by your doctor prior to surgery. You will be notified of any changes in home medications before leaving the hospital. -A prescription for pain medication may be given to you. Take it as directed. It is important to control your pain during recovery. -Do not stop taking antibiotics if they were prescribed for you. Take them until they are all gone. Antibiotics are sometimes used to prevent infection after surgery. BOWEL MOVEMENTS: -You may not have a bowel movement for a few days after surgery. The first one may be difficult to pass. Do not strain in order to go, and allow yourself plenty of time when going for the first time following your surgery. -To help soften your stool, eat a diet high in fiber. This includes foods such as cereals, whole grain breads and vegetables. You can also take a fiber supplement or stool softeners, which your provider may prescribe for you. DIET: -Your appetite may be decreased following surgery. You will be eating regular food before you are discharged from the hospital. Start out with small amounts of food and increase your meals as you are able to tolerate them without feeling nauseated. -Eat healthy foods to help you heal more quickly and increase your energy. Avoid foods that cause gas, as this will make you feel uncomfortable. -Drink 6-8 glasses of water each day. SMOKING: -Smoking increases your chances of post-surgical complications. It is never too late to quit. Ask your nurse or provider for information to help you quit smoking. ACTIVITY: -Restrict yourself to light activity and increase your activity level slowly, resting frequently. -Be aware your pain medication may cause drowsiness. -It usually takes 4-8 weeks for the body to heal. -You may walk slowly. Limit stair climbing. Do not exercise until the provider tells you it is safe to do so. -No douching, tampons or sex for 6 weeks. This will allow time for healing. You can no longer get after having a hysterectomy but will still need to protect yourself from sexually transmitted diseases. -Lift nothing heavier than 10-15 pounds for 2 weeks. -You can drive in about 2 weeks, unless otherwise instructed by your provider. -You can expect to return to work or school and other normal activities in about 6 weeks or as directed by your provider. -When you get home, you may shower normally. If you have an incision, wash the area with soap and water and dry thoroughly after showering. You may have steri-strips (thin strips of tape used to help hold the incision together while it heals). If these are present, do not remove them. Keep the area of your incision clean and dry. STRESS AND MOOD -A hysterectomy may change the way that you view yourself. These are normal feelings. Talk to your family and health care provider about these feelings. If you feel depressed, seek counseling or talk to your provider about treatment options. It is important in the healing process to have a healthy mind. WHEN TO CALL THE DOCTOR: -If your stitches are swollen, red or have drainage coming from them or if you notice them coming apart. It is normal for your incision to feel numb up to a year. -If you are having chills, fever or a reaction to your medicine. -If your incision is bleeding or you have increased pain in your incision. -If within an hour you have soaked a sanitary pad with vaginal bleeding. -If you are unable to urinate or it has been 4-6 hours since you have urinated. Also, if you have burning with urination or feel like you cant completely empty your bladder; call your provider for further instructions. -If you have a smelly discharge coming from your incision or vagina. -If you have any questions about your surgery or medications. If you have difficulty breathing, chest pain, uncontrolled bleeding or any other emergency, call 911 or report to the nearest emergency department immediately. - Diet and Activity Activity: increase activity as tolerated Hospital Course [employer] Reason for admission: other (vaginal bleeding) Discharge diagnosis: other (s/p D&C) Hospital course: 48 y/o F with out contributing medical history presented to Ed on 01-04 for vaginal bleeding. In ED tachycardic 140 but vitals otherwise stable. On exam pale and pelvic exam with active bleeding with clots . Diagnosed with vaginal hemorrhage and found to have HgB of 5.8. EKG showed diffuse ST elevated with negative troponin x1 with out chest pain attributed to demand ischemia with expected improvement repeat EKG. Pelvic US significant endometrial strip thickened at 24mm and right ovarian multiple cystic measure 5.4 x 6.1 x 3.7 cm. Patient reports over one year of irregular menses with bleeding every 3-4 months but large volume bleeding for two days. History of night sweats for over one year. Reports lost to [employer] follow up since of youngest 18 years ago. Admitted on [employer] service, started on IV estrogen and transfused 3 unites on day one but continued bleeding lead to repeat Hgb of 6. Thus decision as made for D&C requiring intra uterine compression with palm. Patient required addition transfusion for total of 9 unites PRBC and 2 units plasma to reach stable post op HgB of 10.5 to 10. On POD 1 patient reports able to tolerate clear liquid diet with out nausea. She reports flatus but denies BM although not uncommon for her to go several days without. Her faitgue has improved and denies shortness of breath , chest pain of palpitations. Her bleeding has slowed to spotting with out clots. She reports new unproductive cough after D&C but lungs clear on exam. Her pedal edema has decreased. Her palm was just removed but no dysuria as of yet. Continued megace scheduled bid . Time Attestation: Total time spent providing and/or coordinating discharge services: Exam - Constitutional Vitals: Temp Pulse Resp BP Pulse Ox 99.2 F 86 16 99/59 92 01/06/19 08:17 01/06/19 08:17 01/06/19 08:30 01/06/19 08:17 01/06/19 08:30 General appearance IM: A&O X 3, no acute distress, obese, answers questions appropriately - Respiratory Respiratory exam: Present: CTAB. Absent: accessory muscle use, respiratory distress - Cardiovascular Cardiovascular exam IM: Present: RRR. Absent: diastolic murmur, systolic murmur - GI/Abdominal GI/Abdominal exam IM: hypoactive bowel sounds Additional comments: non tender with out rebound and no masees palpated - Rectal Rectal exam: deferred - Extremities Exam Extremities exam IM: Present: full ROM, pedal edema (+1 pitting bilateral up to ankles), radial pulses palpable and symmetrical - Neurological Exam Neurological exam: alert, oriented X3, no focal deficits - Skin Additional comments: conjunctiva pale but skin appears normal tone - VTE Documentation of Mechanical Device: Intermittent pneumatic compression device - Attending Attestation I examined this patient and my medical decision-making was reviewed with the Resident Physician. I agree with the documented findings, disposition and treatment plan as described. Abdominal exam benign. Pelvic exam with uterus and is on the high side of normal size, mobile and nontender. Adnexa are nontender without masses appreciated bilaterally. Minimal bleeding at the time of discharge. Patient requests discharge if further testing is normal and is to be scheduled as a follow-up with me within 1 week. Instructions given Michelle Mcdaniel MD
[2019-01-06] MEDS ORDERED: MetroNIDAZOLE 500 MG/100 ML 500 MG/100 ML BAG IVPB ONE (10:48)
--- NOTE | 2019-01-06 13:38 | Electrocardiograph Report ---
[place] [id number] Test Date: 2019-01-06 Pat Name: Betsy Portillo Department: 101 Room: 1N0 Gender: F Dietitian Research: VIVIEN : 1970 Requested By: Fartun Mccormick Order Number: [id number] Reading MD: Sonu Fink Measurements Intervals [place] Rate: 87 P: 21 FL: 156 QRS: 52 QRSD: 97 T: 132 QT: 382 QTc: 427 Interpretive Statements SINUS RHYTHM LOW QRS VOLTAGE IN PRECORDIAL LEADS NONSPECIFIC ST & T-WAVE ABNORMALITY Electronically Signed On 01-06-2019 13:36:24 EDT by Sonu Fink
--- NOTE | 2019-01-08 19:54 | Electrocardiograph Report ---
[address] [address] Test Date: 2019-01-04 Pat Name: Betsy Portillo Department: 104 Room: [facility] Gender: F Wiper Blender: Britney : 1970 Requested By: Josue Sahu Order Number: [id number] Reading MD: Demetrio Bowers Measurements Intervals [place] Rate: 144 P: 75 TN: 129 QRS: 101 QRSD: 85 T: 41 QT: 336 QTc: 419 Interpretive Statements SINUS TACHYCARDIA MARKED RIGHT AXIS DEVIATION NONSPECIFIC ST & T-WAVE ABNORMALITY Electronically Signed On 01-08-2019 19:53:23 EDT by Demetrio Bowers
== END 2019-01-06 16:30 | disposition home or self-care (01) | DRG 744 ==
LOC: EMEROOARM 20:14 → 1NENUOBS 20:14
PROVIDERS: ADMIT Student in an Organized Health Care Education/Training Program; ATTEND Student in an Organized Health Care Education/Training Program